=== PATIENT | male | born 2000 | race Caucasian/White ===

== ENCOUNTER 2023-02-04 13:31 | Observation (INO) | payer SELFPAY ==
[2023-02-04] VITALS (18 sets, daily range): BP systolic 120–153; BP diastolic 54–91; PULSE 83–116; RESP 14–22; TEMP 36.4–36.9; O2SAT 93–100; BMI 27.8
--- NOTE | 2023-02-04 08:00 | XR_ITS ---
WS: [id number] EXAMINATION: XR forearm LT 2V [id number] REASON FOR EXAM: postop orif [id number] COMPARISON: 02/05/2023 ORDER DATE: 02/04/2023 8:00 AM FINDINGS: There has been recent ORIF of radial and ulnar fractures now in satisfactory alignment with plating and screws in each. Splint and or dressing in place. XR/XR forearm LT 2V [id number] IMPRESSION: Satisfactory ORIF of radial and ulnar fractures.
--- NOTE | 2023-02-04 13:32 | XRR_ITS ---
PROCEDURE INFORMATION: Exam: XR Left Wrist Exam date and time: 02/04/2023 1:40 PM Age: 22 years old Clinical indication: Injury or trauma; Fall; Blunt trauma (contusions or hematomas); Wrist; Left; Additional info: Fall deformity TECHNIQUE: Imaging protocol: Radiologic exam of the left wrist. Views: 3 or more views. COMPARISON: No relevant prior studies available. FINDINGS: Bones/joints: Acute fracture of the mid radial diaphysis with mild radial and marked dorsal displacement of the major distal fracture fragment. Acute fracture of the distal ulnar diaphysis with prominent radial and volar displacement of the major distal fracture fragment. Soft tissues: Soft tissue swelling. XR/XR wrist LT min 3V* [id number] IMPRESSION: 1. Acute fracture of the mid radial diaphysis with mild radial and marked dorsal displacement of the major distal fracture fragment. 2. Acute fracture of the distal ulnar diaphysis with prominent radial and volar displacement of the major distal fracture fragment.
--- NOTE | 2023-02-04 13:32 | XRR_ITS ---
PROCEDURE INFORMATION: Exam: XR Left Forearm Exam date and time: 02/04/2023 1:40 PM Age: 22 years old Clinical indication: Injury or trauma; Fall; Blunt trauma (contusions or hematomas); Wrist; Left; Additional info: Fall deformity TECHNIQUE: Imaging protocol: Radiologic exam of the left forearm. Views: 2 views. COMPARISON: No relevant prior studies available. FINDINGS: Bones/joints: Acute fracture of the mid radial diaphysis with mild radial and marked dorsal displacement of the major distal fracture fragment. Acute fracture of the distal ulnar diaphysis with mild radial and prominent volar displacement of the major distal fracture fragment. Soft tissues: Soft tissue swelling. XR/XR forearm LT 2V [id number] IMPRESSION: 1. Acute fracture of the mid radial diaphysis with mild radial and marked dorsal displacement of the major distal fracture fragment. 2. Acute fracture of the distal ulnar diaphysis with mild radial and prominent volar displacement of the major distal fracture fragment.
--- NOTE | 2023-02-04 13:34 | W.ED.FALL ---
HPI - Fall General: Chief Complaint: Trauma Stated Complaint: fall arm injury Time Seen by Provider: 02/04/23 13:32 History of Present Illness: Patient presents to the ER just after falling 8 feet from a ladder landing on his left forearm. There is obvious deformity. Patient did not have loss of consciousness. This was witnessed. Patient's only complaint of pain is his left forearm with no other complaints at this time. Review of Systems General: Reports: 10 or more systems reviewed and unremarkable except in HPI and below PFSH ED PFSH: Social History Smoking and tobacco status: never smoked Alcohol intake: never Substance/Drug Use: never Physical Exam Const: COMMON NORMALS: average body habitus, patient oriented x3, no limitations, healthy appearing, alert and well nourished HENMT: COMMON NORMALS: normocephalic, atraumatic, hearing grossly normal bilaterally, external ears normal, Normal external nose present and moist oral mucous membranes HEAD & SCALP: normocephalic and atraumatic NOSE: Normal external nose present EXTERNAL EAR: Yes external ears normal Neck/C-Spine: COMMON NORMALS: full ROM, no lymphadenopathy, supple, no meningeal signs, no JVD and Thyroid normal THYROID: Thyroid normal Lymph: LYMPHATIC: no lymphadenopathy noted and no lymphedema noted Chest: COMMONS NORMALS: normal inspection of the chest and normal palpation of entire chest wall Resp: COMMON NORMALS: normal respiratory effort, No retractions, No use of accessory muscles and clear to auscultation bilaterally AUSCULTATION: clear to auscultation bilaterally Cardio: COMMON NORMALS: no JVD, regular rate, regular rhythm, S1 normal heart sound present, S2 normal heart sound present, No gallops present (Cardio), No clicks present (Cardio), No murmurs present (Cardio) and No rub (Cardio) RATE: regular rate RHYTHM: regular rhythm HEART SOUNDS: S1 normal heart sound present and S2 normal heart sound present GI: COMMON NORMALS: Normal to inspection, nondistended, normoactive bowel sounds present, Soft to palpation, non-tender, No hepatosplenomegaly present and no masses PALPATION: Yes Soft to palpation and Yes No hepatosplenomegaly present : COMMON NORMALS: Yes no CVA tenderness BLADDER/KIDNEY EXAM: Yes no CVA tenderness Back/Pelvis: COMMON NORMALS: no CVA tenderness Extremity: NARRATIVE EXTREMITY EXAM: Obvious deformity in left distal forearm region. Pulses intact. Pain with any attempted movement. All other extremities are negative. Neuro: COMMON NORMALS: patient oriented x3 SENSORIUM/ORIENTATION: Yes alert MENINGEAL SIGNS: Yes no meningeal signs Procedures Orthopedic Fracture Reduction Fracture #1: Time Out Performed: Yes Side: left Fracture Reduction Location: radius and ulna Analgesia: procedural sedation (100 milligrams ketamine IV) Technique: direct manipulation and traction/counter-traction Post Reduction X-rays Demonstrate: acceptable reduction Post-reduction neuro exam: intact Post-reduction vascular exam: intact Splint Applied: Yes Patient Tolerated Procedure: well and no complications Procedural Sedation Indication: fracture/dislocation reduction ASA Class: I Time of Last PO Intake: 10:00 Preparation: monitor technician applied, pulse oximeter, supplemental O2 applied, suction/airway equipment at bedside and IV secured Ketamine: IV Ketamine dose (mg): 100 Patient Tolerated Procedure: well and no complications Course Vital Signs: Vital signs: Vital Signs Temperature 97.6 F 02/04/23 16:04 Pulse Rate 116 H 02/04/23 16:04 Respiratory Rate 16 02/04/23 16:04 Blood Pressure 120/54 02/04/23 16:04 Pulse Oximetry 100 02/04/23 14:31 Oxygen Delivery Me thod Room Air, Nasal C annula 02/04/23 16:04 MDM - Fall Medical Decision Making Patient presents to the ER with complaints of falling off a ladder and breaking his left forearm. X-rays was obtained which showed a midshaft left radial and ulnar fracture with displacement. Dr. Clements was consulted he wanted us to do conscious sedation, fracture reduction, OCL and he will take to the OR in 3 to 4 hours when patient's p.o. intake was 8 hours prior. Patient tolerated conscious sedation fracture reduction well with no complaints. Differential Diagnosis Likely fracture of wrist; Unlikely syncope, dislocation of shoulder region, compression fracture, concussion with loss of consciousness or concussion without loss of consciousness Medical Records I reviewed the patient's medical records. Lab Data I reviewed the patient's lab results. Radiology Impressions Forearm X-Ray 02/04/23 13:32 IMPRESSION: 1. Acute fracture of the mid radial diaphysis with mild radial and marked dorsal displacement of the major distal fracture fragment. 2. Acute fracture of the distal ulnar diaphysis with mild radial and prominent volar displacement of the major distal fracture fragment. Wrist X-Ray 02/04/23 13:32 IMPRESSION: 1. Acute fracture of the mid radial diaphysis with mild radial and marked dorsal displacement of the major distal fracture fragment. 2. Acute fracture of the distal ulnar diaphysis with prominent radial and volar displacement of the major distal fracture fragment. ADDENDUM: 02/04/23 2094 A dictation error occurred in the report, which should read: Acute fracture of the distal ulnar diaphysis with mild radial and prominent volar displacement of the major distal fracture fragment. Discharge Plan Discharge Condition: Stable Prescriptions: No Action No Known Home Medications Coding Level of Care Code ED Primary Care Coordinator for Mile Fisher
[2023-02-04] MEDS: ondansetron 2 mg/ML SDV 2 mL 4 MG IVP ×3 (13:46→21:13)
[2023-02-04] MEDS: fentaNYL 50 mcg/mL INJ 2mL IVP (13:46)
[2023-02-04] MEDS: sodium chloride 0.9% 1,000 ML 999 ML IV (13:47)
[2023-02-04] MEDS: HYDROmorphone 1 mg/mL INJ 1 mL IVP (14:31)
--- NOTE | 2023-02-04 15:28 | P.HP_ITS ---
Providers/Chief Complaint Admitting Physician: Alberto Clements DO/orthopedic surgery Chief Complaint: fall arm injury History of Present Illness Mike Washington is a 22 year old male presents to the emergency department after sustaining a fall 8 feet from a ladder he fell on an outstretched left upper extremity. Patient was brought to the emergency department and found to have a closed left both bone forearm fracture. He had last eaten roughly around 10 AM. He has significant angulation as well as deformity he is reduced into better position placed in a sugar-tong splint and orthopedic consulted. Given his young age and significant displacement in both bone forearm fracture would recommend open reduction internal fixation this evening after 8 hours. Plan will be to admit the patient postoperatively for postoperative monitoring and neurovascular checks with plan for likely discharge home tomorrow. He has no chronic medical comorbidities. No other complaints or injuries at this time secondary survey examination unremarkable denies loss of consciousness or hitting his head and denies any open wounds. Denies any fevers chills chest pain shortness of breath complains of some slight nausea but no vomiting. Review of Systems General: Reports: 10 or more systems reviewed and unremarkable except in HPI and below Medications/Allergies Home Medications Medication Instructions Recorded Confirmed Last Taken Type No Known Home Medications 04/05/20 02/04/23 Unknown History Allergies Allergy/AdvReac Type Severity Reaction Status Date / Time No Known Allergies Allergy Verified 02/04/23 13:32 PFSH Acute PFSH: Social History Smoking and tobacco status: never smoked Alcohol intake: never Substance/Drug Use: never Vitals/I&O/Wt Last Vital Signs Temp 98.0 F 02/04/23 13:32 Pulse 83 02/04/23 13:32 Resp 18 02/04/23 14:31 BP 120/54 02/04/23 13:32 Pulse Ox 100 02/04/23 14:31 O2 Del Method Room Air 02/04/23 13:32 Weight last 48 hrs Weight 200 lb Physical Exam Narrative: Examination left upper extremity: Examination left upper extremity is limited secondary to patient being in a sugar-tong splint. Able to palpate his compartments these are soft and compressible at this time he is able to wiggle his fingers AIN/PIN/radial/ulnar/median nerve intact. He does complain of nonspecific paresthesias to all 5 of the digits but he is able to report sensation to the median ulnar and radial nerve. Fingertips are warm well-perfused brisk capillary refill less than 2 seconds. No tenderness to palpation of the fingers or no tenderness to palpation of the elbow. Splint was not taken down secondary to patient unstable fracture. Secondary survey examination unremarkable for any tenderness to palpation of the bilateral upper extremity shoulders elbows the right wrist and hand. No pain with pelvic compression patient is able to range his bilateral lower extremities with no pain to the bilateral lower extremity joints of the hips knees foot and ankle the left knee has a slight abrasion on the lateral aspect but he has minimal to no tenderness to palpation no evidence of joint effusion or ligamentous instability. Data Xray Ortho: My impression: X-rays multiple views forearm wrist reviewed and demonstrate a both bone forearm fracture of the radius and ulna fracture is significantly shortened as well as and significant angulation and displacement. Reduction the emergency department patient has slight improvement in overall angulation but still significant shortening noted. A&P Assessment and plan (1) Closed fracture of left ulna and radius: Plan N.p.o. since 10 AM?maintain n.p.o. status X-rays reviewed patient underwent sedation with preliminary reduction and sugar- tong splint to stabilize unstable both bone forearm fracture by the emergency department Pain control Patient undergo open reduction internal fixation left both bone forearm fracture this evening after 8 hours of n.p.o. status. Will admit patient postoperatively for neurovascular checks and monitoring with plan for likely discharge home tomorrow. Patient has a closed left both bone form fracture with significant shortening and displacement given his young age and inherent instability would recommend surgical intervention of the left both bone forearm fracture. Waited appropriate 8 hours from his last meal. I talked about this in detail with patient as well as his parents who are at bedside. We talked about the risk benefits complications alternatives with surgery. At this point time would recommend surgical intervention for appropriate length alignment and function of the left upper extremity and to improve healing we will accommodate for earlier range of motion. This was surge include not limited to make it better make it worse malunion, nonunion, infection, decreased range of motion functional left u pper extremity, injury to nerves vessels or tendons. Understanding his risk for surgery patient and parents agree to proceed with surgical intervention all questions answered at this time. We will proceed with a left both bone forearm fracture ORIF. Attestations Medical Necessity Statement*: Displaced left both bone forearm fracture Coding Level of Care Code Acute Code for Chg Fwd Diagnoses Closed fracture of left ulna and radius S52.92XA; S52.202A Time Spent (min) 45
--- NOTE | 2023-02-04 16:23 | FLR_ITS ---
PROCEDURE INFORMATION: Exam: FL Fluoroscopy, Up to 1 Hour Physician Time; Radiologist Not Present For Fluoroscopy Exam date and time: 02/04/2023 3:27 PM Age: 22 years old Clinical indication: Other: Post reduction TECHNIQUE: Imaging protocol: Fluoroscopy , up to 1 hour physician or other qualified health daycare assistant time. This radiologist did not supervise this procedure. Exam supervised by facility personnel. Report for radiation dosage reporting and documentation only. COMPARISON: CR (UP EXM, ) 02/04/2023 1:40 PM RADIATION DOSE METRICS: Fluoroscopy time (seconds): 7.6 Number of fluoro spot images: 2 Reference air kerma (APOLONIA): 0.09 mGy FINDINGS: Procedural imaging: Two images demonstrate partial reduction of the left radius and ulna diaphyseal fractures with no over riding. There is some residual displacement. Notes: Fluoroscopy supervised by facility personnel. See also separate procedure report. XR/XR wrist LT 2V [id number] IMPRESSION: Fluoroscopy dosage documentation. See also separate procedure notes.
[2023-02-04] MEDS: acetaminophen 1,000 MG/100 ML PIGGYBACK 400 MG IV (17:51)
[2023-02-04] MEDS: ketorolac 30 mg/mL INJ IVP (17:51)
[2023-02-04] MEDS: ceFAZolin 2,000 MG in sodium chloride 0.9% (plus) 50 ML 100 MG IV (18:00)
--- NOTE | 2023-02-04 18:20 | ANES.PREANE2 ---
Pre-Anesthetic Assessment Height/Weight: Height 1.8 m Weight 90.718 kg Temp Pulse Resp BP Pulse Ox O2 Del Method 97.6 F 110 H 18 143/79 98 Room Air 02/04/23 17:15 02/04/23 17:48 02/04/23 17:48 02/04/23 17:15 02/04/23 17:48 02/04/23 17:15 Preop Diagnosis: Left both bone forearm fracture Operation Date: 02/04/23 18:20 Proposed Procedures p ORIF Wrist ORIF Distal Radius(Left) - Alberto Clements DO Familial anesthetic complications: none Was Beta Feng taken within 24 hours: N/A Was Clonidine taken within 24 hours: N/A Social No alcohol and No tobacco Exam alert, oriented x 3, clear to auscultation bilaterally and regular rate & rhythm Airway Submandibular: within normal limits Cervical ROM: within normal limits Mallampati: Class I Dentition: full History/ROS No significant history except as noted Musc/skel Left forearm frx--fall Anesthetic Plan ASA status: 1E Anesthesia: General (Mod RSI) Medications/Allergies Home Medications Medication Instructions Recorded Confirmed Last Taken Type No Known Home Medications 04/05/20 02/04/23 Unknown History Allergies Allergy/AdvReac Type Severity Reaction Status Date / Time No Known Allergies Allergy Verified 02/04/23 13:32 [facility] Anesthesia Social History Smoking and tobacco status: never smoked Alcohol intake: never Substance/Drug Use: never Data Anesthesia Cardiac Studies: No Data to Display
[2023-02-04] MEDS: lidocaine 2% INJ 20 mL INJECTION (18:30)
--- NOTE | 2023-02-04 18:59 | SUR.OPER ---
parents notified of surgical progress
--- NOTE | 2023-02-04 20:27 | PM.OP2 ---
Brief Operative Note Date of procedure: 02/04/23 Pre-op diagnosis: Left Both bone forearm fx Post-op diagnosis: same Procedure Done: Left Both bone forearm fracture open reduction and internal fixation Surgeon: Alberto Clements Estimated blood loss (mL): 15 Complications: none Post-op Plan: Taken to pacu in stable condition. Controlled. Will be admitted to the floor postoperatively for observation and neurovascular checks. Patient currently in a splint will be nonweightbearing to the left upper extremity. Encourage finger and elbow range of motion as he can tolerate. Strict elevation and ice overnight. Pain control. Postoperative antibiotics will likely discharge tomorrow. Patient will receive appropriate instruction as well as pain medication postoperatively. Patient family understand agree with current plan. Questions answered Condition: stable Disposition: floor Coding Level of Care Code Acute Code for Mile Fisher
--- NOTE | 2023-02-04 20:30 | PM.PACU ---
PACU note Narrative: Recovering well. Pain controlled. Splint on in place clean dry and intact patient's fingertips are warm well-perfused brisk capillary refill less than 2 seconds is able to wiggle his fingers he is able to perform AIN/PIN/radial/ulnar/median nerve motions which are intact. Sensations intact light touch to the radial/ulnar/median nerve distribution. Compartments are soft and compressible. Exam: awake Disposition: admitted
--- NOTE | 2023-02-04 20:30 | PM.OP ---
Operative Report Date of procedure: February 04, 2023 Pre-op diagnosis: Preop Diagnosis Left both bone forearm fracture Post-op diagnosis: Same Post-op findings: See operative report narrative Procedure done: Left both bone forearm fracture open reduction internal fixation (ORIF radial shaft, ORIF ulnar shaft) Implants: Criss 3.5 DCP plates 8 hole Garber 3.5 mm x 2 3.5 mm x 14 mm screws (11) 3.5 mm x 14 mm screw (3) Surgeon: Alberto Clements DO Estimated blood loss: 15mL 76 minutes IV fluids: See anesthesia record Urine output: None Complications: None Findings: See operative report narrative Condition: stable Disposition: floor Brief History: Patient presents to the emergency department today with a left both bone forearm fracture. Patient has significant displacement and angulation emergency department underwent closed reduction still with interval displacement patient is a young 22-year-old male who fell off a ladder. Given the significant displacement and injury we talked about treatment options and ultimately at this point in time through shared decision making elected to proceed with surgical fixation of open reduction internal fixation left both bone forearm fracture. Patient understands risk benefits complication alternatives with surgery understanding his risk of surgery elects proceed with surgical intervention all questions answered. Patient's consent obtained and he agrees to proceed with surgical intervention. We will admit him postoperatively just for postoperative monitoring for neurovascular checks and and pain control. Procedure: Patient was seen evaluated in the preoperative holding area. Consent was reviewed and signed with patient. Correct extremity was then marked. Patient was then seen evaluated by anesthesia once cleared for surgery was taken back to the operative suite. Patient was then transported utilizing the gurney onto an armboard to the left upper extremity. Nonsterile tourniquet was applied to the left upper arm. Patient underwent anesthesia per the anesthesia department once properly anesthetized the left upper extremity was then prepped and draped in standard orthopedic fashion. Final timeout performed. Patient received appropriate preoperative antibiotics. Esmarch tourniquet was used exsanguinate the left upper extremity. Tourniquet was insufflated to 250 mmHg. My attention was first made towards the radius. A standard volar Janak approach was then utilized this was made centered incision over the fracture site. I subsequently made a sharp scalpel incision through skin and subcutaneous tissue switched to Littler dissection scissors I said it did help the FCR fascia and mobilized the FCR fascia outside of its sheath and then released the floor of the FCR fascia once this was then performed I came upon the FPL tendon as well as muscle belly this was bluntly mobilized. Next given the proximity of the fracture I had to appropriately dissect out the radial artery and as a result I coagulated any perforating branches to the muscle bellies and mobilized the radial artery radially with the brachial radialis. At this point time I utilized a periosteal elevator and had full exposure of the fracture pattern. This was significantly shortened and displaced. I delivered each fracture fragment utilizing a lobster claw clamp and utilizing curettage as well as synovial rongeur debrided out the fracture hematoma and interposed periosteum. Thoroughly irrigation was then performed at the fracture site utilizing [id number] clamps on both the proximal and distal fragments I then performed a standard reduction maneuver this was predominantly a transverse fracture fragment with appropriate cortical reads to avila in the satisfactory reduction. Once reduction was then performed the fracture was then stable I utilized mini C arm to confirm appropriate reduction I then selected the correct size 3.5 mm Criss DCP plate which was an 8 hole. This was laid up centering over the fracture site with goals of at least obtaining 3 screws above and 3 screws below the fracture. I subsequently in standard compression plating technique drilled my post screw on the proximal fragment near the fracture site and then subsequently acentrically drilled in the oblong hole in compression mode prior to plate placement I did subtly pre-bent the plate to prevent from opposite cortex fracture opening up. After my initial compression plating I was satisfied with my reduction as well as fracture opposition and then I subsequently utilized and drilled an additional 3 screws proximally and a total of 3 screws distally for a total of 7 screws for the radius. I utilized all cortical screws as patient had excellent bone. Stable fixation. Once this was done I then confirmed with mini C arm kimberly christianity of the radial bow as well as satisfactory reduction of my radius fracture. Wound bed was then thoroughly irrigated a wet Ray-Neisha sponge was left into the incision site and attention was then turned towards the ulnar shaft For the ulnar shaft I then identified the fracture site and made a standard longitudinal incision centering over the fracture site directly over the subcutaneous border of the ulna with a standard subcutaneous border approach sharp scalpel excision was made through skin and subcutaneous tissue I switched to Littler dissection scissors and dissected out the FCU and ECU and mobilized the periosteum around the ulna. Utilizing an elevator I then freed up periosteum of the appropriate placement for my plate. The plate. It would sit best directly over the ulnar border. Care was made during dissection to protect the dorsal cutaneous ulnar branch. Next I then utilized [id number] clamps to deliver the fracture outside of the wound for thorough irrigation as well as debridement of any fracture hematoma or interposed periosteum. Once I had satisfactory avila and read I utilized the reduction clamps to obtain a satisfactory reduction with appropriate anatomic alignment once this was in appropriate position I then subsequently planned and selected for another 8 hole Garber DCP plates. This was then positioned in appropriate fashion and I subsequently drilled my post screw distally and acentrically drilled in compression fashion just proximal to the fracture site. This had excellent fracture opposition once I was satisfied with this I then placed an additional 2 more screws distally as well as 3 more screws proximally to complete my ulnar border fixation to utilize all cortical screws as patient had excellent bone quality and purchase fixation. Mini C-arm was then brought in and subsequently confirmed satisfactory reduction of the radial shaft and ulnar shaft fractures with stable fixation forearm was then taken through range of motion of pronation and supination was found to be stable with a stable DRUJ and no mechanical blocking appreciated. This completed ORIF both bone forearm fracture. Tourniquet was deflated wound beds were then thoroughly irrigated hemostasis was maintained with bipolar electrocautery. I then subsequently closed the incisions in layered fashion with a 3-0 Vicryl stitch for the subcutaneous tissue for the radius and ulna and then subsequently closed the skin with running horizontal mattress stitch. Incisions were then dressed with Xeroform 4 x 4's ABDs Kerlix and soft roll volar splint and an Kiko wrap. Patient was then awakened from anesthesia and taken to PACU in stable condition. Disposition: Patient taken back in stable condition recovering well pain controlled. This point in time we will admit patient postoperatively just for postoperative neurovascular checks and pain control if he does well overnight plan will be for discharge home tomorrow. Patient will be nonweightbearing to the left upper extremity maintain splint until follow-up. Will receive appropriate discharge instructions as well as pain medication postoperatively. Recommend elevation and ice. Patient and parents understand agree with current plan. All questions answered.
[2023-02-04] MEDS: lactated ringers 1,000 ML 75 ML IV (21:13)
[2023-02-04] MEDS: chlorhexidine gluconate 0.12% Btl 473 mL 30 ML MUCOUS MEM (22:36)
[2023-02-04] MEDS: acetaminophen 500 mg Tablet 1000 MG PO (22:36)
[2023-02-04] MEDS: ketorolac 30 mg/mL INJ 15 MG IVP (22:37)
[2023-02-04] MEDS: TRAMadol 50 mg Tablet PO (22:37)
[2023-02-05] VITALS (11 sets, daily range): BP systolic 134–149; BP diastolic 68–75; PULSE 73–93; RESP 16–18; TEMP 36.3–37.3; O2SAT 93–100
--- NOTE | 2023-02-05 | XR_ITS ---
WS: [id number] EXAMINATION: XR forearm LT 2V [id number] REASON FOR EXAM: postop orif [id number] COMPARISON: Previous studies ORDER DATE: 02/05/2023 7:45 AM FINDINGS: There has been recent ORIF of radial and ulnar fractures now in satisfactory alignment with plating a nd screws in each. Splint and or dressing in place. XR/XR forearm LT 2V [id number] IMPRESSION: Satisfactory ORIF of radial and ulnar fractures.
[2023-02-05] MEDS: oxyCODONE 5 mg IR Tab/Cap PO ×3 (00:54→14:57)
[2023-02-05] MEDS: ceFAZolin 2,000 MG in sodium chloride 0.9% (plus) 50 ML 100 MG IV ×2 (00:54→09:50)
[2023-02-05] MEDS: acetaminophen 500 mg Tablet 1000 MG PO ×2 (04:13→12:50)
[2023-02-05] MEDS: TRAMadol 50 mg Tablet PO (04:13)
[2023-02-05] MEDS: iron polysaccharide complex 150 mg Capsule PO (08:26)
[2023-02-05] MEDS: docusate sodium 100 mg Capsule PO (08:26)
[2023-02-05] MEDS: multivitamin therapeutic Tablet 1 TAB PO (08:27)
[2023-02-05] MEDS: calcium carb-vit d 600mg/400unit 1 Tablet 1 EACH PO (08:27)
[2023-02-05] MEDS: chlorhexidine gluconate 0.12% Btl 473 mL 30 ML MUCOUS MEM ×2 (08:30→12:50)
[2023-02-05] MEDS: lactated ringers 1,000 ML 75 ML IV (09:50)
[2023-02-05] MEDS: ketorolac 30 mg/mL INJ 15 MG IVP (09:54)
--- NOTE | 2023-02-05 14:59 | PM.DCS ---
Discharge Providers Date of Admission: 02/04/23 20:19 Date of Discharge: February 05, 2023 Attending Provider at Admission: Alberto Clements DO Attending Provider at Discharge: Alberto Clements DO Consults: None Diagnoses at Discharge Discharge Diagnosis (1) Closed fracture of left ulna and radius: Status: Inactive Reason for Visit Reason for Visit: fall arm injury Brief History: Left both bone forearm fracture Hospital Course Hospital Course Patient is a pleasant 22-year-old male who was brought to the emergency department after sustaining a fall off of a ladder onto a left outstretched upper extremity. Patient was found to have a left both bone forearm fracture with significant angulation and displacement underwent conscious sedation with closed reduction and splinting in the emergency department given patient's young age and residual deformity talked about treatment options in detail with patient as well as parents and through shared decision making they elected to proceed with surgical intervention. I subsequently admitted the patient with plan to take patient to the OR. Patient was seen evaluate by anesthesia team once cleared for surgery he was taken back to the operative suite for left both bone forearm fracture ORIF he underwent the surgery without any issues. He recovered well postoperatively with anesthesia. He was in a splint. Recovered well in PACU and was admitted to the floor postoperatively for neurovascular checks as well as pain control. He was monitored overnight. He received appropriate postoperative pain medication as well as postoperative antibiotics. Patient underwent elevation and ice as needed. Dressing was changed as needed. Splint was on and in place and nonweightbearing to left upper extremity. It was determined on postoperative day 1 patient was stable from an orthopedic standpoint for discharge pain was well controlled compartments are soft and compressible gross motor and sensory is intact. Patient subsequently was discharged home from the hospital he received appropriate discharge instructions as well as pain medication postoperatively. Patient will follow-up in the orthopedic office in 2 weeks. Patient and family understand agree with current plan. All questions answered. Physical Exam Narrative: Patient seen and examined. Examination left upper extremity: Patient has a volar splint on in place. Dressings clean dry and intact. Patient has no tenderness palpation left shoulder or elbow. Patient's fingertips are warm and well-perfused brisk capillary refill less than 2 seconds sensations intact light touch to radial/ulnar/median nerve distribution. Patient is able to wiggle fingers as well as to perform cardinal hand movements of AIN/PIN/radial ulnar and median nerve intact. Compartments are soft and compressible. Discharge Data Studies Completed and Pending Completed Studies During Hospitalization Category Date Time Status XR forearm LT 2V [id number] Routine Exams 02/05/23 Completed XR forearm LT 2V [id number] Stat Exams 02/04/23 13:32 Completed XR wrist LT 2V [id number] Stat Exams 02/04/23 16:23 Completed XR wrist LT min 3V* [id number] Stat Exams 02/04/23 13:32 Completed Pending at discharge Category Date Time Status XR forearm LT 2V [id number] Routine Exams 02/04/23 08:00 Taken Type and Screen Routine Lab 02/04/23 15:30 Uncollected Radiology Impressions Wrist X-Ray 02/04/23 16:23 IMPRESSION: Fluoroscopy dosage documentation. See also separate procedure notes. Forearm X-Ray 02/05/23 00:00 IMPRESSION: Satisfactory ORIF of radial and ulnar fractures. Procedures Performed Left both bone forearm fracture open reduction internal fixation Vitals Last Vital Signs Temp 98.3 F 02/05/23 11:18 Pulse 80 02/05/23 11:26 Resp 16 02/05/23 14:57 BP 137/69 02/05/23 11:18 Pulse Ox 100 02/05/23 11:26 O2 Del Method Room Air 02/05/23 11:26 Discharge Plan Discharge Patient Disposition: Home Condition: Stable Prescriptions: New hydrocodone-acetaminophen 5-325 mg tablet 1 tab PO Q6H PRN (Reason: pain) 7 Days Qty: 28 0RF Discharge Orders: Discharge Order (Routine); Ordered 02/05/23 Ordered By: Alberto Clements Referrals: Raul Brown MD [Physician] - 02/16/23 3:40 pm () Alberto Clements DO [Physician] - 02/20/23 1:00 pm Discharge Diet: Advance as tolerated Discharge Activity: Limit activity as instructed Patient Instructions: Hydrocodone/Acetaminophen (By mouth), Ondansetron (By mouth), ORIF of a Wrist Fracture (GEN), Opioid Safety Activity Restrictions/Additional Instructions: Orthopedic discharge instructions: Patient should leave splint dressing on in place until follow-up Keep splint clean dry and intact Encourage finger range of motion as well as elbow range of motion Ice and elevate as needed for pain and swelling Strict nonweightbearing to the left upper extremity Take pain medication as prescribed Take antinausea medication as needed Supplement with Citracal vitamin D for bone health and healing. Utilize sling as needed for pain and comfort Follow-up with Dr. Clements in the office in 2 weeks Contact the office for any questions or concerns Discharge Attestations Time Spent in Discharge Care*: greater than 30 min Quality Metrics Clinical Quality Measures [ No reported AMI, CVA or VTE this stay] Coding Level of Care Code Acute Code for Chg Fwd Diagnoses Closed fracture of left ulna and radius S52.92XA; S52.202A Time Spent (min) 35
== END 2023-02-05 15:49 | disposition home or self-care (01) ==
LOC: ER 16:30 → OPS 17:09 → MEDSURG 02-05 08:35
PROVIDERS: Admitting Provider Student in an Organized Health Care Education/Training Program; Emergency Provider Emergency Medicine; Visit Provider Student in an Organized Health Care Education/Training Program
PROC: (CPT 25575; principal; 2023-02-04 18:00)
DX: S52.302A Unspecified fracture of shaft of left radius, initial encounter for closed fracture (principal); W11.XXXA Fall on and from ladder, initial encounter; S52.202A Unspecified fracture of shaft of left ulna, initial encounter for closed fracture
CPT/HCPCS: 25575; 25565; 73090; 73100; 73110; 76000; 96365; 96375; 97165; 99152; 99285; C1713; G0378; J0131; J0690; J1100; J1170; J1885; J2250; J2405; J2704; J2710; J3010; J3490; J7030; J7120

== ENCOUNTER → 2023-02-20 13:03 | Outpatient (BNVA) | payer SELFPAY | PROVIDERS: Visit Provider Student in an Organized Health Care Education/Training Program | DX: S52.92XA Unspecified fracture of left forearm, initial encounter for closed fracture; S52.202A Unspecified fracture of shaft of left ulna, initial encounter for closed fracture; X58.XXXA Exposure to other specified factors, initial encounter | CPT/HCPCS: 73090 ==

== ENCOUNTER 2023-02-20 15:18 | Outpatient (CLI) | payer SELFPAY | END 2023-02-20 15:19 | disposition home or self-care (01) | LOC: SPT 15:19 | PROVIDERS: Visit Provider Student in an Organized Health Care Education/Training Program | DX: Z46.89 Encounter for fitting and adjustment of other specified devices (principal); Z98.890 Other specified postprocedural states | CPT/HCPCS: 97760; L3982 ==

== ENCOUNTER → 2023-03-20 13:43 | Outpatient (BNVA) | payer SELFPAY | PROVIDERS: Visit Provider Student in an Organized Health Care Education/Training Program | DX: S52.92XA Unspecified fracture of left forearm, initial encounter for closed fracture (principal); S52.202A Unspecified fracture of shaft of left ulna, initial encounter for closed fracture; X58.XXXA Exposure to other specified factors, initial encounter | CPT/HCPCS: 73090 ==

== ENCOUNTER 2023-03-20 15:59 | Outpatient (CLI) | payer SELFPAY | END 2023-03-20 16:00 | disposition home or self-care (01) | LOC: SPT 15:59 | PROVIDERS: Visit Provider Student in an Organized Health Care Education/Training Program | DX: Z46.89 Encounter for fitting and adjustment of other specified devices (principal); S52.92XD Unspecified fracture of left forearm, subsequent encounter for closed fracture with routine healing; S52.202D Unspecified fracture of shaft of left ulna, subsequent encounter for closed fracture with routine healing; X58.XXXD Exposure to other specified factors, subsequent encounter | CPT/HCPCS: L3908 ==